=== PATIENT | male | born 1975 | race Caucasian/White ===

== ENCOUNTER 2023-02-01 14:01 | Outpatient (CLI) | payer BC, SELFPAY ==
--- NOTE | 2023-02-01 14:13 | XR_ITS ---
WS: [email or web address] Thoracic spine, 3 views, 02/01/2023 Clinical Data: M54.9 - Dorsalgia, unspecified Comparison: None. Findings: No compression fractures are seen. The disc heights are normal. There is a minimal dextroscoliosis. The paravertebral regions are normal. XR/XR thoracic spine 3V* [id number] Impression: Minimal dextroscoliosis.
--- NOTE | 2023-02-01 14:13 | XR_ITS ---
WS: [email or web address] Lumbar spine, 3 views, Clinical Data: M54.9 - Dorsalgia, unspecified Comparison: None. Findings: No compression fractures or subluxation is seen. No disc space narrowing is seen. The transverse proc esses and SI joints are normal. XR/XR lumbar spine 2-3V* [id number] Impression: Negative lumbar spine.
== END 2023-02-01 14:02 | disposition home or self-care (01) ==
PROVIDERS: PCP Nurse Practitioner Family; Visit Provider Nurse Practitioner Family
DX: M54.9 Dorsalgia, unspecified (principal); M41.9 Scoliosis, unspecified
CPT/HCPCS: 72072; 72100; 80053; 80061; 83036; 83735; 84443; 85025

== ENCOUNTER → 2023-03-07 09:36 | Outpatient (BNVA) | payer OTHER, BC, MEDICAID, SELFPAY | PROVIDERS: PCP Nurse Practitioner Family; Visit Provider Nurse Practitioner Family | DX: R42 Dizziness and giddiness (principal); R07.9 Chest pain, unspecified; I10 Essential (primary) hypertension | CPT/HCPCS: 93005 ==

== ENCOUNTER 2023-04-24 09:12 | Outpatient (CLI) | payer OTHER, BC, MEDICAID, SELFPAY ==
--- NOTE | 2023-04-24 09:15 | CT_ITS ---
WS: [email or web address] CT adrenals with and without contrast. HISTORY: E27.8 - Other specified disorders of adrenal gland Noncontrast 2 mm imaging is performed through the abdomen with attention to the adrenal glands. Addit ional 1 minute and 15 minute delayed images are then performed through the adrenal glands. CONTRAST: Omnipaque 350; 95 mL IV. DLP: 765.[address] scans at [facility] use at least one of these dose optimization techniques: automated e xposure control; mA and/or kV adjustment per patient size (includes targeted exams where dose is matc hed to clinical indication); or iterative reconstruction. COMPARISON: 12/10/2018 Lower thorax: Lung bases are hyperexpanded. 3 mm micronodule left lung base. Heart is normal size. Mo derate sized hiatal hernia. Liver: Normal. No intrahepatic dilatation. Gallbladder: Normal. Pancreas: Normal. Spleen: Normal. ADRENAL GLANDS. RIGHT: Normal. No mass or enlargement. LEFT: Very small mass in the LEFT adrenal gland measures 0.7 x 0.9 cm. This adrenal nodule has not ch anged since 2019. Due to its very small size accurate Hounsfield units are difficult to obtain. On th e noncontrast exam Hounsfield units are under 10 suggesting adenoma. Also with no interval change in size of this is benign. Right kidney: Normal. Left kidney: Normal size kidney. Duplicated collecting system. Aorta: Normal. GI tract: Normal as visualized through the abdomen. There is small, subcentimeter right lower quadrant lymph nodes. Similar to the prior study. Abdominal wall: No hernia. Visualized osseous structures: Unremarkable. IMPRESSION: 1. No interval change in size or appearance of the left adrenal nodule since 2019, nodule measures 0. 7 x 0.9 cm. 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 2. Duplicated left collecting system. 3. Moderate size hiatal hernia.
[2023-04-24] MEDS: iohexol 350 mg/mL 500 mL Btl (per mL) IV (09:43)
== END 2023-04-24 09:13 | disposition home or self-care (01) ==
PROVIDERS: PCP Nurse Practitioner Family; Visit Provider Nurse Practitioner Family
DX: E27.8 Other specified disorders of adrenal gland (principal); K44.9 Diaphragmatic hernia without obstruction or gangrene
CPT/HCPCS: 74170; Q9967

== ENCOUNTER 2023-04-26 10:39 | Outpatient (CLI) | payer BC, MEDICAID, SELFPAY ==
--- NOTE | 2023-04-26 | MR_ITS ---
WS: [email or web address] MRI THORACIC SPINE WITHOUT CONTRAST TECHNIQUE: Sagittal T1, T2 and STIR imaging. Axial T2 imaging. Noncontrast imaging obtained. CLINICAL INFORMATION: M54.6 - Pain in thoracic spine COMPARISON: None. FINDINGS: Mild thoracic curve. Mild thoracic kyphosis. No acute compression fractures. No high-grade central ca nal stenosis. Cord signal is normal. No significant disc protrusion or extrusion. Mild facet arthropa thy in the lower thoracic spine. No high-grade foraminal narrowing. Normal caliber thoracic aorta. St able small left adrenal nodule. Normal paravertebral soft tissues. Minimal chronic anterior wedging i n the midthoracic spine at T7-T9. IMPRESSION: * Mild thoracic curve. Mild thoracic kyphosis. No acute compression fractures. No high-grade centr al canal stenosis. Cord signal is normal. * No significant disc protrusions or extrusions. * Mild facet arthropathy lower thoracic spine. * Mild chronic anterior wedging T7-T9.
--- NOTE | 2023-04-26 | MR_ITS ---
WS: [id number] MRI LUMBAR SPINE NONCONTRAST TECHNIQUE: Sagittal T1, T2 and STIR imaging. Axial T1 and T2 imaging. CLINICAL INFORMATION: M54.50 - Low back pain, unspecified COMPARISON: None. FINDINGS: Mild lumbar curve. No acute compression. No high-grade central canal stenosis. L1-L2: Normal. L2-L3: Mild annular bulging. Mild right foraminal narrowing. Spinal canal and left foramen are patent . L3-L4: Mild annular bulging. Mild facet arthropathy. Spinal canal and foramen are patent. L4-L5: Mild annular bulging. Moderate facet arthropathy. Small right foraminal protrusion slightly im pinges the exiting right L4 nerve root. Spinal canal and left foramen are patent. Moderate facet arth ropathy. L5-S1: Mild facet arthropathy. Spinal canal and foramen are patent. Partially visualized Tarlov cyst in the sacrum. Visualized pelvic bony structures: Normal. Paravertebral soft tissues: Normal. IMPRESSION: * Mild lumbar curve. No acute compression. * Small right foraminal protrusion L4-5 with slight impingement exiting right L4 nerve root. Recomme nd correlation right L4 nerve root symptoms. * Mild annular bulge L4-5. Spinal canal remains patent. * Mild to moderate facet arthropathy L4-L5. * No other acute findings.
== END 2023-04-26 10:40 | disposition home or self-care (01) ==
PROVIDERS: PCP Nurse Practitioner Family; Visit Provider Nurse Practitioner Family
DX: M47.814 Spondylosis without myelopathy or radiculopathy, thoracic region (principal); M40.204 Unspecified kyphosis, thoracic region; M48.54XA Collapsed vertebra, not elsewhere classified, thoracic region, initial encounter for fracture
CPT/HCPCS: 72146; 72148

== ENCOUNTER → 2023-05-09 08:45 | Outpatient (BNVA) | payer OTHER, BC, MEDICAID, SELFPAY | PROVIDERS: PCP Nurse Practitioner Family; Referring Provider Nurse Practitioner Family; Visit Provider Physician Assistant | DX: M54.50 Low back pain, unspecified (principal); M54.6 Pain in thoracic spine; F17.290 Nicotine dependence, other tobacco product, uncomplicated | CPT/HCPCS: 72072; 72110 ==

== ENCOUNTER → 2023-05-20 16:07 | Outpatient (BNVA) | payer OTHER, BC, MEDICAID, SELFPAY | PROVIDERS: PCP Nurse Practitioner Family; Visit Provider Internal Medicine Cardiovascular Disease | DX: R07.9 Chest pain, unspecified (principal); I47.1 Supraventricular tachycardia; R00.2 Palpitations; I10 Essential (primary) hypertension; K44.9 Diaphragmatic hernia without obstruction or gangrene; Z86.73 Personal history of transient ischemic attack (TIA), and cerebral infarction without residual deficits; R73.9 Hyperglycemia, unspecified; E78.5 Hyperlipidemia, unspecified; F17.200 Nicotine dependence, unspecified, uncomplicated | CPT/HCPCS: 93005 ==

== ENCOUNTER 2023-05-31 07:38 | Outpatient (CLI) | payer OTHER, BC, MEDICAID, SELFPAY ==
--- NOTE | 2023-05-31 07:45 | USCV_ITS ---
David Diehl Age: 47 Gender: M : 1975 Exam Date: 05/31/2023 07:51 Ordering Phys: Jose Sifuentes MD ([email or web address]) Technologist: PENNY [place] [facility] [place]ication: CHEST PAIN, SHORTNESS OF BREATH BP: 140 / 88 HR: 70 Rhythm: Sinus Technical Quality: Adequate MEASUREMENTS (Male / Female) Normal Values 2D ECHO LVOT Diameter 2.0 cm LV Ejection Fraction MOD 2C 71.5 % LV Ejection Fraction 2C AL 72.3 % LA Diameter 2.8 cm LA Width 2.4 cm LA Height 4.7 cm RA Width 3.5 cm RA Height 3.8 cm Aorta at Sinotubular Diameter 2.3 cm IVC Diameter 1.7 cm M-MODE Aortic Annulus Diameter 2.9 cm LA Ao Ratio MM 0.9 MV E Point Septal Separation 0.3 cm DOPPLER AV Peak Velocity 152.0 cm/s LVOT Peak Velocity 133.0 cm/s AV Area Cont Eq vti 2.8 cm squared AV Area Cont Eq pk 2.7 cm squared MV Peak Velocity 104.0 cm/s MV Area PHT 2.8 cm squared Mitral E to A Ratio 1.0 MV E' Velocity 50.0 cm/s Mitral E to MV E' Ratio 7.8 Mitral E to LV E' Lateral Ratio 6.5 Mitral E to LV E' Septal Ratio 9.9 TR Peak Velocity 194.3 cm/s TR Peak Gradient 15.1 mmHg TR Mean Velocity 159.7 cm/s TR Mean Gradient 11.0 mmHg TR Velocity Time Integral 55.9 cm TV Peak E Velocity 59.0 cm/s Right Atrial Pressure 3.0 mmHg Pulmonary Artery Systolic Pressu 18.1 mmHg PV Peak Velocity 93.0 cm/s RV Acceleration Time 0.1 s RV Ejection Time 0.3 s RV AcT/ET 0.5 FINDINGS Left Ventricle Normal left ventricular size and systolic function, EF 68 %. No regional wall motion abnormalities. Grade I/IV diastolic dysfunction (abnormal relaxation filling pattern), normal to mildly elevated filling pressures. Mild left ventricular hypertrophy. Right Ventricle The right ventricle is normal in size and function. Right Atrium The right atrium is normal in size. Left Atrium The left atrium is normal in size. Mitral Valve No gross morphologic abnormalities noted Aortic Valve No gross morphologic abnormalities noted Tricuspid Valve No gross morphologic abnormalities noted.trace tricuspid valve regurgitation. Pulmonic Valve No gross abnormalities noted Pericardium Normal pericardium without effusion. Aorta Normal ascending aorta dimension. IVC Normal inferior vena cava. CONCLUSIONS Normal left ventricular size and systolic function, EF 68 %. No regional wall motion abnormalities. Grade I/IV diastolic dysfunction (abnormal relaxation filling pattern), normal to mildly elevated filling pressures. Mild left ventricular hypertrophy. No significant valvular abnormalities. Normal chamber sizes. Trace of tricuspid regurgitation. There is no pericardial effusion. No similar previous studies are available for comparison Dr Jose Sifuentes MD FAC (Electronically Signed) Final Date: 31 May 2023 16:48 S
== END 2023-05-31 07:39 | disposition home or self-care (01) ==
PROVIDERS: PCP Nurse Practitioner Family; Visit Provider Internal Medicine Cardiovascular Disease
DX: R06.09 Other forms of dyspnea (principal); R06.02 Shortness of breath; R07.9 Chest pain, unspecified; I51.89 Other ill-defined heart diseases
CPT/HCPCS: 93306

== ENCOUNTER 2023-07-22 07:46 | Outpatient (CLI) | payer OTHER, BC, MEDICAID, SELFPAY ==
--- NOTE | 2023-07-22 08:00 | MR_ITS ---
WS: [id number] MRI LUMBAR SPINE NONCONTRAST HISTORY: Chronic progressive back pain. COMPARISON: 04/26/2023 TECHNIQUE: Sagittal and axial multisequence imaging is submitted. Normal lumbar alignment with no compression fractures or marrow edema. Disc spaces and vertebral body heights are well-preserved. Conus terminates normally at L1-2 disc level. L1-L2: Normal. L2-L3: Mild annular disc bulging with mild RIGHT foraminal narrowing. No central stenosis. Similar to the prior study. L3-L4: Mild annular disc bulging and facet arthritis. Mild ligamentum flavum hypertrophy. Very slight encroachment into the foramina. No high-grade stenosis. L4-L5: Mild annular disc bulging. Small RIGHT foraminal disc protrusion impinging upon the exiting RI GHT L4 nerve root. Mild to moderate RIGHT foraminal stenosis. No stenosis centrally. Very minimal sorin rowing of the LEFT foramen. L5-S1: Mild annular disc bulging. Encroachment upon the S1 nerve roots but no stenosis. Mild bilatera l foraminal narrowing due to facet disease. Reidentified is a Tarlov cyst at the third sacral segment.. IMPRESSION: 1. No high-grade central or foraminal stenosis. 2. RIGHT foraminal disc protrusion at L4-5 with mild and contact on the exiting RIGHT L4 nerve root, similar to the prior study. No progression. 3. Facet joint arthritis is mild at L4-5. 4. Mild annular disc bulging at L5-S1 with mild disc encroachment upon the S1 nerve roots but no disp lacement. 5. No marrow edema or acute fracture.
== END 2023-07-22 07:47 | disposition home or self-care (01) ==
LOC: RAD 07:46
PROVIDERS: PCP Nurse Practitioner Family; Visit Provider Physician Assistant
DX: G89.29 Other chronic pain (principal); M54.41 Lumbago with sciatica, right side; M54.42 Lumbago with sciatica, left side; M51.26 Other intervertebral disc displacement, lumbar region; M47.816 Spondylosis without myelopathy or radiculopathy, lumbar region; M51.37 Other intervertebral disc degeneration, lumbosacral region
CPT/HCPCS: 72148

== ENCOUNTER → 2023-11-07 10:53 | Outpatient (BNVA) | payer BC, MEDICAID, SELFPAY | PROVIDERS: PCP Nurse Practitioner Family; Visit Provider Nurse Practitioner Family | DX: E27.8 Other specified disorders of adrenal gland (principal); R73.9 Hyperglycemia, unspecified; I10 Essential (primary) hypertension; E78.5 Hyperlipidemia, unspecified | CPT/HCPCS: 80053; 80061; 82306; 83036; 84443; 85025 ==

== ENCOUNTER → 2023-12-05 13:55 | Outpatient (BNVA) | payer BC, MEDICAID, SELFPAY | PROVIDERS: PCP Nurse Practitioner Family; Visit Provider Orthopaedic Surgery | DX: M54.50 Low back pain, unspecified (principal) | CPT/HCPCS: 72110 ==

== ENCOUNTER → 2023-12-31 10:12 | Outpatient (BNVA) | payer BC, MEDICAID, SELFPAY | PROVIDERS: PCP Nurse Practitioner Family; Visit Provider Nurse Practitioner Family | DX: M79.672 Pain in left foot (principal) | CPT/HCPCS: 84550 ==

== ENCOUNTER → 2024-01-01 09:04 | Outpatient (BNVA) | payer BC, MEDICAID, SELFPAY | PROVIDERS: PCP Nurse Practitioner Family; Visit Provider Nurse Practitioner Family | DX: M79.671 Pain in right foot (principal) | CPT/HCPCS: 73630 ==

== ENCOUNTER 2024-01-08 11:40 | Outpatient (CLI) | payer BC, MEDICAID, SELFPAY ==
--- NOTE | 2024-01-08 | ECG_ITS ---
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 Interpretive Statements NAME OF STUDY: TREADMILL STRESS TEST INDICATION: Chest Pain PROCEDURE: At the baseline, the patient's blood pressure was 144/96 with a heart rate of 76. The baseline electrocardiogram showed normal sinus rhythm with normal ST-Ts. The patient exercised for 9 minutes on a standard Miguel protocol. Patient attained a maximum heart rate of 176 beats per minute(101% of the maximum predicted heart rate) with a blood pressure at the peak exercise of 192/80 mm Hg. The EKG at the peak exercise revealed no significant changes. Patient did not have any chest pain or any significant cardiac arrhythmias with the exercise During the recovery phase, there were no new changes. Blood pressure at the end of the recovery phase was 131/89 mm Hg with a heart rate of 107 per minute. CONCLUSION: 1. Normal EKG response to treadmill exercise 2. No exercise-induced chest pain or cardiac arrhythmia 3. Fair exercise tolerance, attained a maximum of 10.2 METs 4. Hypertensive response to exercise Electronically Signed On 01-09-2024 8:50:12 CDT by Jose Sifuentes M.D. [email or web address]
[2024-01-08 11:46] VITALS: BMI 26.6
[2024-01-08 12:31] VITALS: BP 131/84; PULSE 107
== END 2024-01-08 11:41 | disposition home or self-care (01) ==
LOC: CDL 11:40
PROVIDERS: PCP Nurse Practitioner Family; Visit Provider Internal Medicine Cardiovascular Disease
DX: R07.9 Chest pain, unspecified (principal)
CPT/HCPCS: 93017

== ENCOUNTER 2024-04-09 08:14 | Day surgery (SDC) | payer BC, MEDICAID, SELFPAY ==
[2024-04-09 08:44] VITALS: BP 120/82; PULSE 89; RESP 16; TEMP 36.1; O2SAT 98; BMI 26.9
[2024-04-09] MEDS: sodium chloride 0.9% 1,000 ML 30 ML IV (08:59)
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
--- NOTE | 2024-04-09 10:02 | W.PM.OPSUD ---
Surgery/Procedure H&P Update DATE OF PROCEDURE: April 09, 2024 DATE H&P PERFORMED: 03/20/24 H&P UPDATE INFORMATION: I have reviewed H&P completed within last 30 days, I have examined patient prior to procedure and No changes to prior documentation PLANNED PROCEDURE: Operation Date: 04/09/24 09:30 Proposed Procedures p EGD 75732 , 06491, G0105, K21.9, K92.1, K44.9 , Z12.11(Not Applicable) - DO mary Gonzalez Colonoscopy(Not Applicable) - Justyn Lewis DO
[2024-04-09] MEDS: ondansetron 2 mg/ML SDV 2 mL 4 MG IVP (10:07)
[2024-04-09] MEDS: EPINEPHrine 1 mg/mL INJ XX (11:02)
[2024-04-09 11:07] VITALS: BP 140/88; PULSE 70; RESP 18; TEMP 36.6; O2SAT 97
[2024-04-09 11:22] VITALS: BP 139/84; PULSE 88; RESP 16; O2SAT 97
--- NOTE | 2024-04-09 11:35 | ANE.PACU2 ---
Inpatient post-anesthesia follow up: Airway intact: Yes Vital signs: Temperature 98 F Pulse Rate 88 Respiratory Rate 16 Blood Pressure 139/84 Pulse Oximetry 97 Oxygen Delivery Me thod Room Air Oxygen Flow Rate Fraction of Inspir ed Oxygen Hydration adequate: Yes Nausea and vomiting: No Pain level: 1 Mental status: Baseline
== END 2024-04-09 11:39 | disposition home or self-care (01) ==
PROVIDERS: PCP Nurse Practitioner Family; Visit Provider Surgery
PROC: 0DJ08ZZ Inspection of Upper Intestinal Tract, Via Natural or Artificial Opening Endoscopic (ICD-10-PCS; CPT 43235; principal; 2024-04-09 09:30)
PROC: 0DJD8ZZ Inspection of Lower Intestinal Tract, Via Natural or Artificial Opening Endoscopic (ICD-10-PCS; CPT 45378; 2024-04-09 09:30)
DX: K92.1 Melena (principal); K21.9 Gastro-esophageal reflux disease without esophagitis; K44.9 Diaphragmatic hernia without obstruction or gangrene; K29.50 Unspecified chronic gastritis without bleeding; D12.4 Benign neoplasm of descending colon; D12.5 Benign neoplasm of sigmoid colon
CPT/HCPCS: 43239; 45385; 88305; 88342; J0171; J0330; J1100; J2405; J2704; J3010; J7030

== ENCOUNTER → 2024-04-20 16:00 | Outpatient (BNVA) | payer BC, MEDICAID, SELFPAY | PROVIDERS: PCP Nurse Practitioner Family; Visit Provider Surgery | DX: I85.00 Esophageal varices without bleeding (principal) | CPT/HCPCS: 36415; 80076 ==

== ENCOUNTER 2024-05-14 07:33 | Outpatient (CLI) | payer BC, MEDICAID, SELFPAY ==
--- NOTE | 2024-05-14 08:00 | US_ITS ---
WS: [email or web address] RIGHT UPPER QUADRANT ULTRASOUND HISTORY: esophageal varices COMPARISON: None available. Liver: 17.1 cm in length. Normal size liver and echogenicity. No bile duct dilatation or mass. Portal Vein: Normal hepatopetal flow with monophasic waveform. Gallbladder: Slightly contracted. No stones. CBD: 0.3 cm Pancreas: Completely obscured by bowel gas. Right kidney: 9.2 cm in length. Normal size and echogenicity. No hydronephrosis or mass. Aorta and IVC: Unremarkable abdominal aorta and IVC. No ascites. US/US liver [id number] IMPRESSION: 1. Normal liver. 2. Gallbladder is slightly contracted. No cholelithiasis.
== END 2024-05-14 07:34 | disposition home or self-care (01) ==
LOC: RAD 07:33
PROVIDERS: PCP Nurse Practitioner Family; Visit Provider Surgery
DX: I85.00 Esophageal varices without bleeding (principal)
CPT/HCPCS: 76705

== ENCOUNTER 2024-05-26 15:25 | Outpatient (CLI) | payer BC, MEDICAID, SELFPAY ==
[2024-05-26 16:25] LABS: C.Diff PCR (Lab) NEGATIVE (Negative)
== END 2024-05-26 15:26 | disposition home or self-care (01) ==
PROVIDERS: PCP Nurse Practitioner Family; Visit Provider Surgery
DX: K29.70 Gastritis, unspecified, without bleeding (principal); B96.81 Helicobacter pylori [H. pylori] as the cause of diseases classified elsewhere; I85.00 Esophageal varices without bleeding; D12.6 Benign neoplasm of colon, unspecified
CPT/HCPCS: 87338; 87493

== ENCOUNTER → 2024-10-05 10:18 | Outpatient (BNVA) | payer BC, MEDICAID, SELFPAY | PROVIDERS: PCP Nurse Practitioner Family; Visit Provider Nurse Practitioner Family | DX: I10 Essential (primary) hypertension (principal); R73.9 Hyperglycemia, unspecified; E55.9 Vitamin D deficiency, unspecified | CPT/HCPCS: 80053; 80061; 82306; 82607; 83036; 84443; 85025 ==

== ENCOUNTER 2024-10-13 12:36 | Outpatient (CLI) | payer BC, MEDICAID, SELFPAY | END 2024-10-13 12:37 | disposition home or self-care (01) | LOC: RT 12:38 | PROVIDERS: PCP Nurse Practitioner Family; Visit Provider Nurse Practitioner Family | DX: R06.02 Shortness of breath (principal) | CPT/HCPCS: 94010 ==

== ENCOUNTER 2024-10-16 11:46 | Outpatient (CLI) | payer BC, MEDICAID, SELFPAY ==
--- NOTE | 2024-10-16 12:15 | USR_ITS ---
PROCEDURE INFORMATION: Exam: US Duplex Bilateral Lower Extremity Arteries Exam date and time: 10/16/2024 11:55 AM Age: 49 years old Clinical indication: Other: Pain; Additional info: M79.604 - pain in right leg TECHNIQUE: Imaging protocol: Real-time ultrasound scan of the arteries of the bilateral lower extremities with 2-D guerrero scale, color Doppler flow and spectral waveform analysis. Images documented and saved. COMPARISON: CR XR foot RT min 3V* [id number] 01/01/2024 9:08 AM FINDINGS: Right external iliac artery: Proximal 112.3 cm/sec, mid 99.1 cm/sec, distal 92.0 cm/sec, triphasic. Right common femoral artery: 79 cm/sec, triphasic. Right superficial femoral artery: Proximal SFA 93 cm/sec, triphasic. Mid SFA 98 cm/sec, triphasic. Distal SFA 67 cm/sec, triphasic. Right popliteal artery: 42 cm/sec, triphasic. Right calf/foot arteries: FINISHED CLOTH EXAMINER 32 cm/sec, triphasic. Dorsalis pedis 43 cm/sec, triphasic. Left external iliac artery: Proximal 98.7 cm/sec, mid 80.2 cm/sec, distal 88.1 cm/sec, triphasic. Left common femoral artery: 85 cm/sec, triphasic. Left superficial femoral artery: Proximal SFA 93 cm/sec, triphasic. Mid SFA 102 cm/sec, triphasic. Distal SFA 84 cm/sec, triphasic. Left popliteal artery: 48 cm/sec, triphasic. Left calf/foot arteries: FINISHED CLOTH EXAMINER 38 cm/sec, triphasic. Dorsalis pedis 48 cm/sec, triphasic. Right Ankle-Brachial Index: 1.10. Left Ankle-Brachial Index: 1.18. US/CV arterial duplex [facility] [id number] IMPRESSION: No significant plaque identified. No hemodynamically significant stenosis by peak systolic velocity criteria.
== END 2024-10-16 11:47 | disposition home or self-care (01) ==
PROVIDERS: PCP Nurse Practitioner Family; Visit Provider Nurse Practitioner Family
DX: M79.604 Pain in right leg (principal); M79.605 Pain in left leg
CPT/HCPCS: 93925

== ENCOUNTER → 2025-01-08 14:33 | Outpatient (BNVA) | payer BC, MEDICAID, SELFPAY | PROVIDERS: PCP Nurse Practitioner Family; Visit Provider Nurse Practitioner Family | DX: R30.0 Dysuria (principal) | CPT/HCPCS: 74018; 81000 ==

== ENCOUNTER → 2025-01-11 10:47 | Outpatient (BNVA) | payer BC, MEDICAID, SELFPAY | PROVIDERS: PCP Nurse Practitioner Family; Visit Provider Nurse Practitioner Family | DX: R10.9 Unspecified abdominal pain (principal); N39.0 Urinary tract infection, site not specified; R73.9 Hyperglycemia, unspecified | CPT/HCPCS: 80053; 83036; 85025; 87086 ==

== ENCOUNTER → 2025-01-20 15:57 | Outpatient (BNVA) | payer BC, MEDICAID, SELFPAY | PROVIDERS: PCP Nurse Practitioner Family; Visit Provider Nurse Practitioner Family | DX: R63.4 Abnormal weight loss (principal) | CPT/HCPCS: 80053; 81003; 82306; 82607; 84443; 85025; 86003; 86008; 86618; 86666; 86757 ==

== ENCOUNTER → 2025-01-26 10:04 | Outpatient (BNVA) | payer BC, MEDICAID, SELFPAY | PROVIDERS: PCP Nurse Practitioner Family; Visit Provider Nurse Practitioner Family | DX: I10 Essential (primary) hypertension (principal) | CPT/HCPCS: 80048; 85025 ==

== ENCOUNTER 2025-01-28 15:33 | Outpatient (CLI) | payer BC, MEDICAID, SELFPAY ==
[2025-01-28] MEDS: iohexol 350 mg/mL 500 mL Btl (per mL) PO (16:17)
--- NOTE | 2025-01-28 16:45 | CT_ITS ---
WS: [email or web address] CT ABDOMEN AND PELVIS WITH CONTRAST HISTORY: R63.4 - Abnormal weight loss TECHNIQUE: Imaging performed of the abdomen and pelvis with IV contrast. Single phase imaging of the abdomen. Coronal and sagittal reformats are submitted. All CT scans at [facility] use at least one of these dose optimization techniques: automated exposure control; mA and/or kV adjustment per patient size (includes targeted exams where dose is matched to clinical indication); or iterative reconstruction. IV CONTRAST: Omnipaque 350; 100 mL IV. Oral contrast: Yes. DLP: 488.29 mGy.cm COMPARISON: 04/24/2023 Lower thorax: Lung bases are hyperinflated. Heart is normal size. Large hiatal hernia. Liver/biliary system: Normal size with no intrahepatic dilatation. Gallbladder: Gallbladder is contracted with no adjacent inflammation. Pancreas: Normal size pancreas and pancreatic duct. No adjacent inflammation. Spleen: Normal size spleen. No mass or infarct. Adrenal glands: 8 mm LEFT adrenal gland nodule is stable. Stable since at least 2018. RIGHT adrenal gland is normal. Right kidney: Normal. Left kidney: Normal. Aorta: Normal. Lymphadenopathy: Numerous small lymph nodes in the RIGHT lower quadrant. Largest lymph node 9 mm. Free fluid: None. GI tract: No obstruction or colitis. Normal appendix. No significant diverticular disease. Mild increased soft tissue near the terminal ileum and cecum but this may be due to under distention with oral contrast. Abdominal wall: Unremarkable abdominal wall. No hernia. Pelvis: No free fluid or adenopathy within the pelvis. Urinary bladder is not distended. Very slight prostate gland encroachment upon the bladder. Bones: Unremarkable. CT/CT abdomen pelvis w con* [id number] IMPRESSION: 1. No acute abdominal pelvic abnormality identified. 2. No ascites or adenopathy. 3. Large hiatal hernia. 4. No GI tract obstruction. 5. Increased soft tissue near the terminal ileum and cecum but no obstruction. This is only very slight increase soft tissue which could be related to under distention with oral contrast and fecal retention. Early neoplasm not excluded. Of note are several small lymph nodes in the RIGHT lower quadrant. Consider co lonoscopy evaluation.
[2025-01-28] MEDS: iohexol 350 mg/mL 500 mL Btl (per mL) IV (17:06)
== END 2025-01-28 15:34 | disposition home or self-care (01) ==
PROVIDERS: PCP Nurse Practitioner Family; Visit Provider Nurse Practitioner Family
DX: R63.4 Abnormal weight loss (principal); R10.31 Right lower quadrant pain; K44.9 Diaphragmatic hernia without obstruction or gangrene; R59.0 Localized enlarged lymph nodes; R91.8 Other nonspecific abnormal finding of lung field; E27.8 Other specified disorders of adrenal gland; R93.3 Abnormal findings on diagnostic imaging of other parts of digestive tract
CPT/HCPCS: 74177

== ENCOUNTER → 2025-02-03 08:55 | Outpatient (BNVA) | payer BC, MEDICAID, SELFPAY | PROVIDERS: PCP Nurse Practitioner Family; Visit Provider Nurse Practitioner Family | DX: E87.6 Hypokalemia (principal) | CPT/HCPCS: 80048 ==

== ENCOUNTER 2025-07-01 13:22 | Outpatient (CLI) | payer MEDICAID, SELFPAY ==
--- NOTE | 2025-07-01 13:45 | MR_ITS ---
WS: [email or web address] MRI CERVICAL SPINE NONCONTRAST HISTORY: M54.2 - Cervicalgia COMPARISON: None available. Technique: Multiplanar, multisequence noncontrast imaging of the cervical spine. Exam is compromised by patient's body habitus. Mild increase in the cervical lordosis. Signal within the cervical cord is normal. Visualized posterior fossa is unremarkable. Craniocervical junction, C1 and C2 relationship, odontoid process and soft tissues are normal. C2-C3: Normal. C3-C4: Very small foraminal osteophytes. Minimal bilateral foraminal stenosis. C4-C5: Mild foraminal narrowing. Suspect small osteophytes. C5-C6: Normal. C6-C7: Small central disc protrusion and small foraminal osteophytes. Very mild foraminal stenosis. C7-T1: Normal. Paraspinal soft tissue are normal. MR/MR cervical spin wo con* [id number] IMPRESSION: 1. Study is compromised by patient's body habitus and motion. 2. No high-grade central stenosis. 3. Mild foraminal stenosis at C3-4, C4-5 and C6-7 with a small central disc pr otrusion at C6-7. 4. No fracture.
== END 2025-07-01 13:23 | disposition home or self-care (01) ==
LOC: RAD 13:22
PROVIDERS: PCP Nurse Practitioner Family; Visit Provider Nurse Practitioner Family
DX: M48.02 Spinal stenosis, cervical region (principal); G89.29 Other chronic pain; M50.223 Other cervical disc displacement at C6-C7 level; R93.7 Abnormal findings on diagnostic imaging of other parts of musculoskeletal system; M25.78 Osteophyte, vertebrae
CPT/HCPCS: 72141

== ENCOUNTER → 2025-07-16 14:38 | Outpatient (BNVA) | payer MEDICAID, SELFPAY | PROVIDERS: PCP Nurse Practitioner Family; Visit Provider Nurse Practitioner Family | DX: M79.641 Pain in right hand (principal) | CPT/HCPCS: 73130 ==

== ENCOUNTER → 2025-08-10 14:46 | Outpatient (BNVA) | payer MEDICAID, SELFPAY | PROVIDERS: PCP Nurse Practitioner Family; Visit Provider Nurse Practitioner Family | DX: M79.641 Pain in right hand (principal) | CPT/HCPCS: 73130 ==